=== PATIENT | male | born 1985 | race Hispanic/Latino ===

== ENCOUNTER 2019-02-27 14:11 | Emergency (ER) | payer SELFPAY ==
[2019-02-27 14:15] VITALS: BMI 26.4
[2019-02-27 14:17] VITALS: BP 149/99; PULSE 95; RESP 18; TEMP 98.7; O2SAT 96
[2019-02-27] MEDS ORDERED: Lidocaine 2% w Epi 1:100,000 Inj IJ ONE (14:29)
[2019-02-27] MEDS ORDERED: Tdap Vaccine 0.5 ml Vial (10-64 yrs) IM ONE ×2 (14:39→14:51)
--- NOTE | 2019-02-27 14:41 | C.PDOC ---
History Of Present Illness 33 year old male presents to ED s/p slip and fall that occurred earlier today. Patient hit the top of his head and suffered a laceration. He denies loss of consciousness, vision changes, weakness, or numbness. Time Seen by Provider: 02/27/19 14:20 Chief Complaint (Nursing): Abnormal Skin Integrity History Per: Patient History/Exam Limitations: no limitations Onset/Duration Of Symptoms: Hrs Current Symptoms Are (Timing): Still Present Location Of Injury: Anterior: Head (laceration ) Quality Of Symptoms: Painful Past Medical History Reviewed: Historical Data, Nursing Documentation, Vital Signs Vital Signs: Last Vital Signs Temp 98.7 F 02/27/19 14:15 Pulse 95 H 02/27/19 14:15 Resp 18 02/27/19 14:15 BP 149/99 H 02/27/19 14:15 Pulse Ox 96 02/27/19 14:15 Primary Care Provider: FAMILY PROVIDER,NO - Medical History PMH: Post Traumatic Stress Disorder Surgical History: No Surg Hx Family History: States: Unknown Family Hx - Social History Hx Alcohol Use: Yes Hx Substance Use: Yes - Immunization History Hx Tetanus Toxoid Vaccination: No Hx Influenza Vaccination: Yes Hx Pneumococcal Vaccination: No Review Of Systems Constitutional: Negative for: Weakness Eyes: Negative for: Vision Change Skin: Positive for: Other (laceration to the top of the head) Neurological: Negative for: Weakness, Numbness, Headache Physical Exam - Physical Exam Appears: Well, Non-toxic, No Acute Distress Skin: Normal Color, Warm Head: No Tenderness, No Swelling, Laceration (7 cm V-shaped lacteration to the vertex of the head) Eye(s): bilateral: Normal Inspection, PERRL, EOMI Ear(s): Bilateral: Normal Neck: Normal ROM, No Midline Cervical Tenderness, No Paracervical Tenderness, Supple Chest: Symmetrical, No Deformity Extremity: Capillary Refill (<2 seconds) Extremity: Bilateral: Atraumatic, Normal Color And Temperature, Normal ROM Neurological/Psych: Oriented x3, Normal Speech, Normal Cognition, Normal Motor, Normal Sensation Gait: Steady ED Course And Treatment O2 Sat by Pulse Oximetry: 96 (in RA) Pulse Ox Interpretation: Normal Progress Note: Patient given tetanus vaccine and Motrin PO. Laceration repair performed on patient. Tolerated well. Laceration - Laceration Repair Vertex of the head Wound Length (In cm): 7 Description Of Wound: Irregular (V-shaped) Wound Cleansed With: Sterile Saline Anesthesia: Lidocaine 2%, With Epi Wound Examination: Irrigated With Saline, No FB With Wound Exploration Wound Debridement/Revision: Wound Debrided Wound Closure: [place] (18) Wound Complexity: Simple Medical Decision Making Medical Decision Making: superficial scalp lac 18 reta defer abx for "clean" wound TDap staple removal 10 days Disposition Doctor Will See Patient In The: Office Counseled Patient/Family Regarding: Studies Performed, Diagnosis - Disposition Referrals: [facility] [Outside] [facility] [Outside] [facility] [Outside] [facility] [Outside] Disposition: HOME/ ROUTINE Disposition Time: 14:40 Condition: GOOD Additional Instructions: 18 reta placed removal in 10 days (02/27--> 03/09) ice packs to the top of head 1/2 hour per hour wash daily with soap and water thin smear of Bacitracin Ointment daily. Tetanus Booster given Instructions: Laceration Repair With [place] (DC) Forms: [employer] (Burmese) - Clinical Impression Clinical Impression: Scalp laceration - Scribe Statement The provider has reviewed the documentation as recorded by the Scribe (Nazanin Mujica) All medical record entries made by the Scribe were at my direction and personally dictated by me. I have reviewed the chart and agree that the record accurately reflects my personal performance of the history, physical exam, medical decision making, and the department course for this patient. I have also personally directed, reviewed, and agree with the discharge instructions and disposition.
== END 2019-02-27 15:09 | disposition home or self-care (01) ==
LOC: C.ER 14:11
DX: S01.01XA Laceration without foreign body of scalp, initial encounter (principal); W01.0XXA Fall on same level from slipping, tripping and stumbling without subsequent striking against object, initial encounter; F43.10 Post-traumatic stress disorder, unspecified; Z23 Encounter for immunization